=== PATIENT | female | born 1985 | race Two or more races ===

== ENCOUNTER 2024-11-25 20:16 | Inpatient (IN) | payer SELFPAY ==
[2024-11-25] VITALS (20 sets, daily range): BP systolic 121–186; BP diastolic 74–99; PULSE 64–95; RESP 16–100; TEMP 36.7; O2SAT 96–99; BMI 43.3
--- NOTE | 2024-11-25 20:42 | XR_ITS ---
Examination: Complete OB ultrasound greater than 14 weeks Date and time of exam: November 25, 2024 at 9:26 PM Indications: No care, unknown size and dates, pelvic pain 2 days with pelvic contractions Findings: Viable intrauterine single fetus with single amniotic sac presentation cephalic Cardiac motion 148 BPM Placenta fundal anterior grade 3 Poor visualization umbilical cord Amniotic fluid index 3.4 cm spine maternal left Cervix 3.9 cm Ovaries obscured by bowel gas. Composite estimated gestational age based on BPD, head circumference, abdominal circumference, femur length is 34 weeks 2 days Estimated weight 2494 g. Survey of intracranial anatomy, spinal anatomy, abdominal anatomy, four-chamber heart performed with no abnormalities identified. Impression: Viable intrauterine gestation cephalic presentation Amniotic fluid index 3.4 cm Estimated gestational age 34 weeks 2 days Estimated weight 2494 g.
[2024-11-25 21:19] LABS: Collection Type, Urine Voided
[2024-11-25 21:29] LABS: Amphetamine/Metham Scrn,Ur OB Negative (Negative); Benzoylecgonine Screen, Ur OB Negative (Negative); Opiate Screen,Urine OB Negative (Negative); THC Screen,Urine OB Negative (Negative)
[2024-11-25] MEDS: RINGERS LACTATED 1000 ML 1,000 ML 999 ML IV (21:30)
[2024-11-25 21:41] LABS: Basophils % (Auto) 0 % (0-2.5); Eosinophils # (Auto) 0.1 Thou/mm3 (0.0-0.5); Eosinophils % (Auto) 1 % (0-10); Hematocrit 34.9 % (36.0-46.0); Hemoglobin 11.4 g/dL (12.0-16.0); Immature Granulocytes % (Auto) 0 % (0-0); Immature Granulocytes Auto 0.04 Thou/mm3 (0.00-0.00); Lymphocytes # (Auto) 2.2 Thou/mm3 (1.0-4.8); Lymphocytes % (Auto) 20 % (10-50); Mean Corpuscular HGB Conc 32.7 g/dl (31.0-37.0); Mean Corpuscular Hemoglobin 23.3 pg (25.0-35.0); Mean Corpuscular Volume 71 fL (80-100); Monocytes # (Auto) 0.8 Thou/mm3 (0.0-0.8); Monocytes % (Auto) 7 % (0-12); Neutrophils # (Auto) 8.1 Thou/mm3 (1.8-7.7); Neutrophils % (Auto) 72 % (37-80); Nucleated Red Blood Cell % 0 /100 WBC (0); Platelet Count 215 Thou/mm3 (140-440); RDW Standard Deviation 44.7 fL (36.4-46.3); Red Blood Count 4.89 Miln/mm3 (4.00-5.20); White Blood Count 11.3 Thou/mm3 (3.6-11.0)
[2024-11-25 21:52] LABS: Alanine Aminotransferase 29 U/L (10-49); Albumin, Serum 3.6 gm/dL (3.5-5.0); Albumin/Globulin Ratio 1.2 (1.2-2.2); Anion Gap 12 (7-16); Aspartate Amino Transferase 26 U/L (0-34); BUN/Creatinine Ratio 13 Ratio (12-20); Bilirubin,Total 0.5 mg/dL (0.3-1.2); Blood Urea Nitrogen 12 mg/dL (9-23); Calcium 8.8 mg/dL (8.3-10.6); Calcium (Corrected) 9.1 mg/dL (8.5-10.1); Carbon Dioxide 21.5 mMol/L (20.0-31.0); Chloride 104 mMol/L (98-107); Creatinine (Component) 0.9 mg/dL (0.6-1.3); Glucose 86 mg/dL (74-106); LDH (Lactate Dehydrogenase) 240 U/L (120-246); Osmolality,Calculated 272 (275-295); Potassium 3.8 mMol/L (3.4-5.1); Sodium 137 mMol/L (136-145); Total Protein 6.6 gm/dL (5.7-8.2); Uric Acid 7.6 mg/dL (3.1-7.8); eGFR > 60 See Note
[2024-11-25 21:53] LABS: Bilirubin,Urine Negative (Negative); Blood,Urine 3+ (Negative); Clarity,Urine Turbid (Clear/Hazy); Color,Urine Yellow (Lt Yel-Yel); Glucose, Urine Negative (Negative); Ketones,Urine Trace (Negative); Leukocyte Esterase,Urine Positive (Negative); Nitrite,Urine Negative (Negative); PH,Urine 6.5 (5.0-7.0); Protein,Urine 3+ (Neg - Trace); RBC,Urine 11 /hpf (0-3); Specific Gravity,Urine 1.032 (1.001-1.035); Squamous Epithelial Cell,Urine 34 /hpf (0-5); Urobilinogen,Urine Negative mg/dL (0.0-1.0); WBC,Urine 54 /hpf (0-5)
[2024-11-25 22:02] LABS: Hepatitis B Surface Antigen Non Reactive (Non React); Rubella, IgG Antibody Reactive (Immune)
[2024-11-25 22:03] LABS: Alkaline Phosphatase 322 U/L (46-116)
[2024-11-25 22:06] LABS: Syphilis Nonreactive (Nonreactive)
[2024-11-25 22:14] LABS: Glucose Estimated Average 120 mg/dL (80-131); Hemoglobin A1C 5.8 % Hgb (4.8-6.0)
[2024-11-25 22:22] LABS: HIV (1&2) Antibody Rapid Non-Reactive
--- NOTE | 2024-11-25 22:22 | ESHP_ITS ---
Documentation for date of: 11/25/24 OB Labor/Induct. HPI History of Present Illness Chief complaint: Bleeding, cramping, unknown gestational age : 2 Para: 1 Term pregnancies: 1 Living children: 1 History of Abortions: Spontaneous and Elective: 0 History of Vaginal deliveries: 1 History of sections: No History of : No History of present illness: Patient is a 39-year-old -0-0-1 status post vaginal delivery 15 years ago presented to triage with cramping and abdominal pain. She stated she did not feel well today. She denies headache, changes in vision or right upper quadrant pain. She reports she has had a cough and cold with some diarrhea recently butno fevers. Patient is has an unknown last menstrual period. She stated she tried to get care at [facility] and they told her they did not have any providers available. By ultrasound in triage she is approximately 33 to 34 weeks . While she was being evaluated in triage and the heart tones were noted to be in the 140s to 150s with decreased variability and some late decelerations. This was occurring frequently. Patient denies any drug use or smoking this . She is consented for a primary for recurrently decelerations. Blood pressures 150s over 90s in triage with 3+ protein. Patient has probable preeclampsia. was called at 10:12 PM. History of Present Dating criteria: based on 3rd trimester US only Adequate Care: No Ultrasounds: none and other (The ultrasound she has had this has been done in OB triage immediately before delivery.) Medical complications: none Labs Labs: Unknown: RPR, Hepatitis B, Rubella Titre, HIV, Chlamydia, Gonorrhea and Group Beta Strep Narrative: All labs were drawn on her admission in triage tonight Review of Systems Constitutional Comments: Patient denies headaches or changes in vision. She states she has not felt well and had a cold recently. She denies right upper quadrant pain. She reports spotting and pain for 2 to 3 days before she appeared no loss of fluids no time oval contraction she has felt pressure. Past Medical History Surgical History SURGICAL: Negative Section OTHER SURGICAL HX: Patient denies any significant medical history or surgical history Social History SOCIAL: Patient denies smoking alcohol or drug use this Past Medical History Comments PMH COMMENT: Patient denies any surgeries any asthma hypertension or diabetes. Meds Home Medications and Allergies Home Medications ?Medication ?Instructions ?Recorded ?Confirmed ?Type vit no.95-ferrous 1 tab PO QDAY 11/25/2411/03 History fumarate 28 mg-folic acid 800 mcg tablet () Allergies Allergy/AdvReac Type Severity Reaction Status Date / Time No Known Allergies Allergy Verified 11/25/24 20:25 OB Exam Physical Exam Vital signs: Pulse BP 93 153/79 H 11/25/24 22:14 11/25/24 22:14 Routine Respiratory Exam Respiratory: Present CTA bilaterally Routine Cardiovascular Exam Cardiovascular: Present RRR Routine Abdominal Exam Abdominal: Present soft Detailed Labor and Delivery Exam Dilation (cm): ft Effacement (%): thick Cervix position: posterior station: -4 Consistency: firm Presentation: Vertex Membranes: intact monitor decelerations: Late intermediate manager variability: Minimal (3-5) Tachysystole: No Routine Extremities Exam Comments: No cyanosis clubbing or edema. Routine Skin Exam Skin: Present dry Routine Neurological Exam Neurological: Present alert and oriented X3 Routine Psychiatric Exam Psychiatric: Present normal affect, normal thought process and anxious Comments: Slightly anxious OB Results Labs 11/25/24 21:05 11/25/24 21:05 Labs: Short CBC 11/25/24 Range/Units 21:05 WBC 11.3 H (3.6-11.0) Thou/mm3 Hgb 11.4 L (12.0-16.0) g/dL Hct 34.9 L (36.0-46.0) % Plt Count 215 (140-440) Thou/mm3 BMP 11/25/24 21:05 Sodium 137 Potassium 3.8 Chloride 104 Carbon Dioxide 21.5 BUN 12 Creatinine 0.9 Glucose 86 Calcium 8.8 Liver Function 11/25/24 Range/Units 21:05 Total Bilirubin 0.5 (0.3-1.2) mg/dL AST 26 (0-34) U/L ALT 29 (10-49) U/L Alkaline Phosphatase 322 H (46-116) U/L Albumin 3.6 (3.5-5.0) gm/dL Urine 11/25/24 Range/Units 21:05 Urine Color Yellow (Lt Yel-Yel) Urine Clarity Turbid A (Clear/Hazy) Urine pH 6.5 (5.0-7.0) Ur Specific [place] 1.032 (1.001-1.035) Urine Protein 3+ A (Neg - Trace) Urine Glucose (UA) Negative (Negative) OB Assessment & Plan Assessment and Plan (1) : Status: Acute (2) Advanced maternal age (AMA) in : Status: Acute (3) Pre-eclampsia affecting childbirth: Status: Acute (4) No care in current in third trimester: Status: Acute Additional Plan Additional Plan Comment: For emergent section secondary to category 3 tracing not improved with medical interventions (1) Qualifiers: Weeks of gestation: 34 weeks Qualified Code(s): Z3A.34 - 34 weeks gestation of
[2024-11-25 22:23] LABS: INR 0.1 (0.9-1.3); Prothrombin Time 10.3 Seconds (9.0-12.2)
--- NOTE | 2024-11-25 22:38 | ESHP_ITS ---
Documentation for date of: 11/25/24 OB Labor/Induct. HPI History of Present Illness : 2 Para: 1 Term pregnancies: 1 Living children: 1 History of Abortions: Spontaneous and Elective: 0 History of Vaginal deliveries: 1 History of sections: No History of : No History of present illness: Patient is a 39-year-old -0-0-1 status post vaginal delivery 15 years ago presented to triage with cramping and abdominal pain. She stated she did not feel well today. She denies headache, changes in vision or right upper quadrant pain. She reports she has had a cough and cold with some diarrhea recently butno fevers. Patient is has an unknown last menstrual period. She stated she tried to get care at [facility] and they told her they did not have any providers available. By ultrasound in triage she is approximately 33 to 34 weeks . While she was being evaluated in triage and the heart tones were noted to be in the 140s to 150s with decreased variability and some late decelerations. This was occurring frequently. Patient denies any drug use or smoking this . She is consented for a primary for recurrently decelerations. Blood pressures 150s over 90s in triage with 3+ protein. Patient has probable preeclampsia. was called at 10:12 PM. History of Present Dating criteria: based on 3rd trimester US only Adequate Care: No Labs Labs: Unknown: RPR, Hepatitis B, Rubella Titre, HIV, Chlamydia, Gonorrhea and Group Beta Strep Past Medical History Surgical History SURGICAL: Negative Section Meds Home Medications and Allergies Home Medications ?Medication ?Instructions ?Recorded ?Confirmed ?Type vit no.95-ferrous 1 tab PO QDAY 11/25/2411/03 History fumarate 28 mg-folic acid 800 mcg tablet () Allergies Allergy/AdvReac Type Severity Reaction Status Date / Time No Known Allergies Allergy Verified 11/25/24 20:25 OB Exam Physical Exam Vital signs: Pulse BP Pulse Ox 88 157/79 H 99 11/25/24 22:34 11/25/24 22:34 11/25/24 22:35 OB Results Labs 11/25/24 21:05 11/25/24 21:05 Labs: Short CBC 11/25/24 Range/Units 21:05 WBC 11.3 H (3.6-11.0) Thou/mm3 Hgb 11.4 L (12.0-16.0) g/dL Hct 34.9 L (36.0-46.0) % Plt Count 215 (140-440) Thou/mm3 BMP 11/25/24 21:05 Sodium 137 Potassium 3.8 Chloride 104 Carbon Dioxide 21.5 BUN 12 Creatinine 0.9 Glucose 86 Calcium 8.8 Liver Function 11/25/24 Range/Units 21:05 Total Bilirubin 0.5 (0.3-1.2) mg/dL AST 26 (0-34) U/L ALT 29 (10-49) U/L Alkaline Phosphatase 322 H (46-116) U/L Albumin 3.6 (3.5-5.0) gm/dL Urine 11/25/24 Range/Units 21:05 Urine Color Yellow (Lt Yel-Yel) Urine Clarity Turbid A (Clear/Hazy) Urine pH 6.5 (5.0-7.0) Ur Specific [place] 1.032 (1.001-1.035) Urine Protein 3+ A (Neg - Trace) Urine Glucose (UA) Negative (Negative) OB Assessment & Plan Assessment and Plan (1) : Status: Acute (2) Advanced maternal age (AMA) in : Status: Acute (3) Pre-eclampsia affecting childbirth: Status: Acute (4) No care in current in third trimester: Status: Acute (1) Qualifiers: Weeks of gestation: 34 weeks Qualified Code(s): Z3A.34 - 34 weeks gestation of
[2024-11-25] MEDS: ceFAZolin/D5W 2 GM IV 2 GM/100 ML BAG IV (22:41)
[2024-11-25] MEDS: CITRIC ACID/SODIUM CITR 15 ML UDC (BICITRA) 30 ML PO (22:41)
[2024-11-25] MEDS: FAMOTIDINE INJ 10 MG/ML VIAL 2 ML 20 MG IVP (22:41)
[2024-11-25 23:06] LABS: Fibrinogen 494 mg/dL (175-375)
--- NOTE | 2024-11-25 23:53 | ESOP_ITS ---
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 She stated she was unable to obtain care. She presented to triage with vague abdominal pain and not feeling well. She also reported some vaginal bleeding and cramping with pressure. In triage, the patient's blood pressures were noted to be in the 150s over 80s to 90s. heart tones were noted to be 150s with decreased variability and subtle decelerations suspicious for late decelerations. These persisted despite position change and an IV fluid bolus. A Bedside ultrasound was called for to determine gestational age and the bedside ultrasound revealed a vertex presentation very low NICK of about 2-3 and a grade 3 placenta. Baby was measuring approximately 34 weeks. As patient's blood pressures were elevated with 3+ protein in her urine and a category 3 tracing that was not resolving with medical intervention the decision was made to proceed with emergent primary low-transverse section. Pre-Op diagnosis: 1. Intrauterine at an unknown gestational age, suspected 34 weeks 2. Advanced maternal age 3. No care 4. Category 3 tracing 5. Suspected preeclampsia 6. Maternal BMI of 43 Post-Op diagnosis: Same Anesthesia type: Spinal Procedure description: After obtaining informed consent, the patient was brought back to the operating room and spinal anesthesia was placed.She was then prepped and draped in the dorsal supine position with a leftward tilt in a normal sterile fashion. A Patel catheter had been inserted in the patient's bladder in triage. He patient was given 2 g of Ancef by anesthesia. A Pfannenstiel skin incision was made with a scalpel and carried down to the underlying fascia, the fascia was incised in the midline and the fascial incision extended laterally using Fajardo scissors. The superior aspect the fascia was grasped with Dayne clamps and the underlying rectus muscles dissected off using blunt and sharp dissection. This was repeated in the inferior aspect of the incision. The rectus muscles were the midline the peritoneum was picked up and entered sharply with Metzenbaums. This was extended superiorly and inferiorly with good visualization of the bladder. The bladder blade was inserted the uterus was incised in low transverse fashion using a scalpel above the bladder reflection. The uterine incision was extended laterally using blunt dissection with the surgeon's fingers. The bag bryant was ruptured and thick meconium noted. The bladder blade was removed the infant was delivered atraumatically. The cord was clamped and cut and the was handed off to the waiting pediatric staff. Cord blood and cord gases were sent. The placenta was then manually removed and handed off the operating field. It was noted to be calcified and meconium stained. The uterus was then exteriorized and cleared of all clots and debris. The uterine incision was repaired using 0 Monocryl in a running locked fashion. Excellent hemostasis was noted. The uterus was returned to the patient's abdominal cavity and copious irrigation carried out with warm normal saline.The uterine incision was reexamined and noted to be hemostatic. After ensuring the rectus muscles were hemostatic these were reapproximated the midline using a running suture of 0 Monocryl.The fascia was closed with 0 Vicryl in a running fashion.The subcutaneous tissues were irrigated and found to be hemostatic. These were reapproximated using 3-0 plain. The skin was closed with a subcuticular suture of 4-0 Monocryl. The patient tolerated the procedure well, sponge lap instrument needle counts correct x 2 patient went to the recovery area awake and in stable condition the baby was in the NICU doing well at the time of dictation. Fluids: crystalloid Fluid amount (mL): 800 Urine output (mL): 200 Specimen: other (Placenta to pathology) Implants: none Estimated blood loss (ml): 500 Findings: Liveborn male in the OA presentation with no nuchal cord and with thick meconium. Apgars are still pending at the time of dictation. Weight is 6 pounds 6 ounces. The placenta was complete spontaneous meconium stained and with large amount of calcifications. This was sent down to pathology for further review. 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 Appendix was normal with no adhesions or other abnormalities in the patient's pelvis. Of note blood gases were drawn on the baby pH arterial 7.06 base excess -10.6 pH venous 7.14 base excess -9.5 Complications: none Surgical staff Operation Date: 11/25/24 22:30 Case Staff FIELD REPRESENTATIVE: Rashida Mcconnell RN First Assistant: Rosa Berry Diagnosis Discharge Diagnosis (1) No care in current in third trimester: Status: Acute (2) Pre-eclampsia affecting childbirth: Status: Acute (3) Advanced maternal age (AMA) in : Status: Acute (4) : Status: Acute Problem List Completed Was Problem List Reviewed/Reconciled?: Yes (4) Qualifiers: Weeks of gestation: 34 weeks Qualified Code(s): Z3A.34 - 34 weeks gestation of
[2024-11-26] VITALS (24 sets, daily range): BP systolic 122–171; BP diastolic 78–109; PULSE 63–80; RESP 14–22; TEMP 36.3–36.6; O2SAT 93–98
--- NOTE | 2024-11-26 00:13 | OBDSUM_ITS ---
<Statement entered by Mague Adams MD - 11/29/24 19:43> please see op report for delivery summary
[2024-11-26] MEDS: LABETALOL INJ 5 MG/ML VIAL 20 ML 20 MG IVP (02:33)
[2024-11-26] MEDS: LABETALOL INJ 5 MG/ML VIAL 20 ML 40 MG IVP (02:54)
[2024-11-26] MEDS: LABETALOL INJ 5 MG/ML VIAL 20 ML 80 MG IVP (03:22)
[2024-11-26] MEDS: ONDANSETRON INJ 2 MG/ML INJ 2 ML 4 MG IV ×2 (03:27→11:45)
[2024-11-26] MEDS: hydrALAZINE INJ 20 MG/ML VIAL 5 MG IV (03:55)
[2024-11-26 05:31] LABS: Hematocrit 35.5 % (36.0-46.0); Hemoglobin 11.2 g/dL (12.0-16.0)
[2024-11-26] MEDS: OXYTOCIN in NS 20 units 20 UNIT/1,000 ML BAG 125 UNIT IV (05:39)
[2024-11-26 06:22] LABS: Anion Gap 12 (7-16); BUN/Creatinine Ratio 15 Ratio (12-20); Blood Urea Nitrogen 12 mg/dL (9-23); Carbon Dioxide 22.2 mMol/L (20.0-31.0); Chloride 102 mMol/L (98-107); Creatinine (Component) 0.8 mg/dL (0.6-1.3); Estimated Creatinine Clearance 102.4 mL/min (>60); Glucose 169 mg/dL (74-106); Osmolality,Calculated 275 (275-295); Potassium 4.2 mMol/L (3.4-5.1); Sodium 136 mMol/L (136-145); eGFR > 60 See Note
[2024-11-26] MEDS: PRENATAL VITAMIN/FE FUM/FA TABLET 1 TAB PO (08:50)
[2024-11-26] MEDS: DOCUSATE SOD 100 MG CAPSULE PO (08:50)
[2024-11-26] MEDS: NIFEdipine XL 30 MG TABCR PO (08:50)
[2024-11-26 10:02] LABS: Basophils % (Auto) 0 % (0-2.5); Eosinophils % (Auto) 0 % (0-10); Hematocrit 33.8 % (36.0-46.0); Hemoglobin 10.6 g/dL (12.0-16.0); Immature Granulocytes % (Auto) 1 % (0-0); Immature Granulocytes Auto 0.11 Thou/mm3 (0.00-0.00); Lymphocytes # (Auto) 1.1 Thou/mm3 (1.0-4.8); Lymphocytes % (Auto) 7 % (10-50); Mean Corpuscular HGB Conc 31.4 g/dl (31.0-37.0); Mean Corpuscular Hemoglobin 23.2 pg (25.0-35.0); Mean Corpuscular Volume 74 fL (80-100); Monocytes # (Auto) 0.3 Thou/mm3 (0.0-0.8); Monocytes % (Auto) 2 % (0-12); Neutrophils # (Auto) 13.3 Thou/mm3 (1.8-7.7); Neutrophils % (Auto) 90 % (37-80); Nucleated Red Blood Cell % 0 /100 WBC (0); Platelet Count 197 Thou/mm3 (140-440); RDW Standard Deviation 47.5 fL (36.4-46.3); Red Blood Count 4.56 Miln/mm3 (4.00-5.20); White Blood Count 14.9 Thou/mm3 (3.6-11.0)
[2024-11-26 10:19] LABS: Alanine Aminotransferase 24 U/L (10-49); Albumin, Serum 3.3 gm/dL (3.5-5.0); Albumin/Globulin Ratio 1.1 (1.2-2.2); Anion Gap 11 (7-16); Aspartate Amino Transferase 29 U/L (0-34); BUN/Creatinine Ratio 15 Ratio (12-20); Bilirubin,Total 0.3 mg/dL (0.3-1.2); Blood Urea Nitrogen 12 mg/dL (9-23); Calcium 8.7 mg/dL (8.3-10.6); Calcium (Corrected) 9.3 mg/dL (8.5-10.1); Carbon Dioxide 21.9 mMol/L (20.0-31.0); Chloride 104 mMol/L (98-107); Creatinine (Component) 0.8 mg/dL (0.6-1.3); Estimated Creatinine Clearance 102.4 mL/min (>60); Globulin 2.9 gm/dL (2.3-3.5); Glucose 154 mg/dL (74-106); Osmolality,Calculated 276 (275-295); Potassium 4.1 mMol/L (3.4-5.1); Sodium 137 mMol/L (136-145); Total Protein 6.2 gm/dL (5.7-8.2); eGFR > 60 See Note
[2024-11-26 10:38] LABS: Alkaline Phosphatase 286 U/L (46-116)
--- NOTE | 2024-11-26 12:11 | PD.LDPPPRG ---
Subjective Subjective Interval history: alert and active. now beginning to eat Exam Vital Signs Temp Pulse Resp BP Pulse Ox O2 Del Method 97.9 F 75 18 143/86 H 93 L Room Air 11/26/24 11:09 11/26/24 11:09 11/26/24 11:09 11/26/24 11:09 11/26/24 03:55 11/26/24 11:09 Objective Labs 11/26/24 09:16 11/26/24 09:16 Labs: Laboratory Results - last 24 hr 11/25/24 11/25/24 11/26/24 20:50 21:05 05:13 WBC 11.3 H RBC 4.89 Hgb 11.4 L 11.2 L Hct 34.9 L 35.5 L MCV 71 L MCH 23.3 L MCHC 32.7 RDW Std Deviation 44.7 Plt Count 215 Neut % (Auto) 72 Lymph % (Auto) 20 [place] % (Auto) 7 Eos % (Auto) 1 Baso % (Auto) 0 Neut # (Auto) 8.1 H Lymph # (Auto) 2.2 [place] # (Auto) 0.8 Eos # (Auto) 0.1 Baso # (Auto) 0.0 Immature Gran # (Auto) 0.04 H Absolute Nucleated RBC 0.00 Immature Gran % 0 Nucleated RBC % 0 PT 10.3 INR 0.1 L Fibrinogen 494 H Sodium 137 136 Potassium 3.8 4.2 Chloride 104 102 Carbon Dioxide 21.5 22.2 Anion Gap 12 12 BUN 12 12 Creatinine 0.9 0.8 Estim Creat Clear Calc Not Performed. 102.4 eGFR > 60 > 60 BUN/Creatinine Ratio 13 15 Glucose [address] Glu mg/dL 120 Hemoglobin A1c 5.8 Calculated Osmolality 272 L 275 Uric Acid 7.6 Calcium 8.8 9.0 Corrected Calcium 9.1 Total Bilirubin 0.5 AST 26 ALT 29 Alkaline Phosphatase 322 H Lactate Dehydrogenase 240 Total Protein 6.6 Albumin 3.6 Globulin 3.0 Albumin/Globulin Ratio 1.2 Ur Collection Type Voided Urine Color Yellow Urine Clarity Turbid A Urine pH 6.5 Ur Specific [place] 1.032 Urine Protein 3+ A Urine Glucose (UA) Negative Urine Ketones Trace Urine Blood 3+ A Urine Nitrite Negative Urine Bilirubin Negative Urine Urobilinogen (Auto) Negative Ur Leukocyte Esterase Positive Urine RBC 11 H Urine WBC 54 H Ur Squamous Epith Cells 34 H Urine Bacteria None Urine Opiates Screen Negative U Amphetamin/Meth Scrn Negative U Cocaine Metab Screen Negative U Marijuana (THC) Screen Negative Syphilis Serology Nonreactive Hep Bs Antigen Non Reactive HIV 1&2 Antibody Rapid Non-Reactive Rubella IgG Antibody Reactive (Immune) Blood Type A Positive Antibody Screen NEGATIVE Blood Bank Wristband ID Yes 11/26/24 09:16 WBC 14.9 H RBC 4.56 Hgb 10.6 L Hct 33.8 L MCV 74 L MCH 23.2 L MCHC 31.4 RDW Std Deviation 47.5 H Plt Count 197 Neut % (Auto) 90 H Lymph % (Auto) 7 L [place] % (Auto) 2 Eos % (Auto) 0 Baso % (Auto) 0 Neut # (Auto) 13.3 H Lymph # (Auto) 1.1 [place] # (Auto) 0.3 Eos # (Auto) 0.0 Baso # (Auto) 0.0 Immature Gran # (Auto) 0.11 H Absolute Nucleated RBC 0.00 Immature Gran % 1 H Nucleated RBC % 0 PT INR Fibrinogen Sodium 137 Potassium 4.1 Chloride 104 Carbon Dioxide 21.9 Anion Gap 11 BUN 12 Creatinine 0.8 Estim Creat Clear Calc 102.4 eGFR > 60 BUN/Creatinine Ratio [address] Glu mg/dL Hemoglobin A1c Calculated Osmolality 276 Uric Acid Calcium 8.7 Corrected Calcium 9.3 Total Bilirubin 0.3 AST 29 ALT 24 Alkaline Phosphatase 286 H D Lactate Dehydrogenase Total Protein 6.2 Albumin 3.3 L Globulin 2.9 Albumin/Globulin Ratio 1.1 L Ur Collection Type Urine Color Urine Clarity Urine pH Ur Specific [place] Urine Protein Urine Glucose (UA) Urine Ketones Urine Blood Urine Nitrite Urine Bilirubin Urine Urobilinogen (Auto) Ur Leukocyte Esterase Urine RBC Urine WBC Ur Squamous Epith Cells Urine Bacteria Urine Opiates Screen U Amphetamin/Meth Scrn U Cocaine Metab Screen U Marijuana (THC) Screen Syphilis Serology Hep Bs Antigen HIV 1&2 Antibody Rapid Rubella IgG Antibody Blood Type Antibody Screen Blood Bank Wristband ID Impressions Impression: 12 hours post c/s. BP undercontrol at thios tome. Still low urine output. Assessment & Plan Problem List (1) No care in current in third trimester: Status: Acute (2) Pre-eclampsia affecting childbirth: Status: Acute (3) Advanced maternal age (AMA) in : Status: Acute (4) : Status: Acute Time Spent With Patient Time: Total time spent is greater than 50% in coordination of care (as documented) at patient's floor/unit and/or counseling patient:
--- NOTE | 2024-11-26 12:12 | PC.SS ---
SS conducted bedside contact with the patient to address nursing referral indicating that patient had not received any care.? SS introduced self and role.? Patient confirmed she had very little care.? The barrier was she had no insurance and had difficulty setting up new appointments. She only received services for confirming and nutritional appointment. Patient states she has one other child at home who is her 15 year old son and now NB.? Patient received initial confirmation at [facility]. ??Patient has not picked out a ship harbor pilot yet. Patient delivered, baby boy, yesterday through section. NB is at [facility]. FOB, is recently .? Patient states she plans on breast feeding. Patient confirmed no history of CPS, drug/alcohol, DV or mental health history.? Patient is not aligned with WIC, SNAP or TANF. Patient has access to appropriate supplies and equipment.? Patient has access to a car seat.? SS provided a list of community resources: Warm line, [employer] and information on community numbers. Patient describes possessing support system consisting of family. Patient?s mother to provide transportation home. No further intervention required at this time. Military Technology Specialist will be available to address any further concerns. SS updated bedside nurse.
[2024-11-26] MEDS: RINGERS LACTATED 1000 ML 1,000 ML 100 ML IV (13:13)
[2024-11-26] MEDS: KETOROLAC INJ 30 MG/ML VIAL IVP (17:04)
[2024-11-27] MEDS: KETOROLAC INJ 30 MG/ML VIAL IVP (00:21)
[2024-11-27 05:30] VITALS: BP 144/91; PULSE 70; RESP 17; TEMP 36.7; O2SAT 99
[2024-11-27 07:10] VITALS: BP 129/81; PULSE 77; RESP 16; TEMP 36.6; O2SAT 95
[2024-11-27 08:08] VITALS: BP 129/81; PULSE 77
[2024-11-27] MEDS: NIFEdipine XL 30 MG TABCR PO (08:08)
[2024-11-27] MEDS: PRENATAL VITAMIN/FE FUM/FA TABLET 1 TAB PO (08:08)
[2024-11-27] MEDS: DOCUSATE SOD 100 MG CAPSULE PO (08:08)
--- NOTE | 2024-11-27 08:23 | ESPR_ITS ---
Subjective Subjective Interval history: Alert in NAD. Pain controlled with toradol. Asking re contacting [facility] [place] to video visit Exam Vital Signs Temp Pulse Resp BP Pulse Ox O2 Del Method 98.1 F 77 17 129/81 99 Room Air 11/27/24 05:30 11/27/24 08:08 11/27/24 05:30 11/27/24 08:08 11/27/24 05:30 11/27/24 05:30 Narrative Exam BP stabilizing with Niphedipine XL 30mg/day Constitutional Comments: alert Routine HEENT Exam Head: Present normocephalic Eye: Present EOMI and PERRL Routine Respiratory Exam Comments: lungs clear Routine Cardiovascular Exam Cardiovascular: Present RRR Routine Abdominal Exam Comments: u/2 firm lochia scant. Incision dry and intact Routine Extremities Exam Comments: +2 symetrical biceps/quadraceps Detailed Extremities Exam: Vascular Comments: present +1 pedal edema Objective Labs 11/26/24 09:16 11/26/24 09:16 Labs: Laboratory Results - last 24 hr 11/26/24 09:16 WBC 14.9 H RBC 4.56 Hgb 10.6 L Hct 33.8 L MCV 74 L MCH 23.2 L MCHC 31.4 RDW Std Deviation 47.5 H Plt Count 197 Neut % (Auto) 90 H Lymph % (Auto) 7 L [place] % (Auto) 2 Eos % (Auto) 0 Baso % (Auto) 0 Neut # (Auto) 13.3 H Lymph # (Auto) 1.1 [place] # (Auto) 0.3 Eos # (Auto) 0.0 Baso # (Auto) 0.0 Immature Gran # (Auto) 0.11 H Absolute Nucleated RBC 0.00 Immature Gran % 1 H Nucleated RBC % 0 Sodium 137 Potassium 4.1 Chloride 104 Carbon Dioxide 21.9 Anion Gap 11 BUN 12 Creatinine 0.8 Estim Creat Clear Calc 102.4 eGFR > 60 BUN/Creatinine Ratio 15 Glucose 154 H Calculated Osmolality 276 Calcium 8.7 Corrected Calcium 9.3 Total Bilirubin 0.3 AST 29 ALT 24 Alkaline Phosphatase 286 H D Total Protein 6.2 Albumin 3.3 L Globulin 2.9 Albumin/Globulin Ratio 1.1 L Assessment & Plan Problem List (1) No care in current in third trimester: Status: Acute (2) Pre-eclampsia affecting childbirth: Status: Acute (3) Advanced maternal age (AMA) in : Status: Acute (4) : Status: Acute Plan Comment Plan Comment: expect d/c in am Time Spent With Patient Time: Total time spent is greater than 50% in coordination of care (as documented) at patient's floor/unit and/or counseling patient:
[2024-11-27 12:06] VITALS: BP 137/88; PULSE 82; RESP 18; TEMP 36.9; O2SAT 97
[2024-11-27] MEDS: IBUPROFEN TAB 600 MG TABLET PO ×2 (12:09→23:27)
[2024-11-27 16:40] VITALS: BP 137/90; PULSE 95; RESP 18; TEMP 36.9; O2SAT 97
[2024-11-27] MEDS: ACETAMINOPHEN 325 MG TABLET 650 MG PO (16:48)
[2024-11-27 20:00] VITALS: BP 137/88; PULSE 87; RESP 16; TEMP 36.7; O2SAT 97
[2024-11-28 04:06] VITALS: BP 130/86; PULSE 89; RESP 14; TEMP 36.9; O2SAT 96
[2024-11-28 05:22] LABS: Hematocrit 32.2 % (36.0-46.0); Hemoglobin 10.2 g/dL (12.0-16.0)
[2024-11-28] MEDS: IBUPROFEN TAB 600 MG TABLET PO (06:14)
[2024-11-28 08:00] VITALS: BP 132/81; PULSE 79; RESP 18; TEMP 36.8; O2SAT 96
[2024-11-28 08:11] VITALS: BP 132/81; PULSE 79
[2024-11-28] MEDS: NIFEdipine XL 30 MG TABCR PO (08:11)
[2024-11-28] MEDS: DOCUSATE SOD 100 MG CAPSULE PO (08:11)
[2024-11-28] MEDS: PRENATAL VITAMIN/FE FUM/FA TABLET 1 TAB PO (08:11)
--- NOTE | 2024-11-28 09:47 | PD.LDPPPRG ---
Subjective Subjective Interval history: alert and active, Notes had cough on admission, and now may still be present Exam Vital Signs Temp Pulse Resp BP Pulse Ox O2 Del Method 98.2 F 79 18 132/81 H 96 Room Air 11/28/24 08:00 11/28/24 08:11 11/28/24 08:00 11/28/24 08:11 11/28/24 08:00 11/28/24 08:00 Narrative Exam doing well no evidence of HTN while on Niphedipine 30 XL Routine HEENT Exam Comments: PERELAC<EOM INTACT Routine Respiratory Exam Comments: LUNGS CLEAR Detailed Cardiovascular Exam Comments: RRR Routine Abdominal Exam Comments: U/@ firm; active BS Objective Labs 11/28/24 04:50 11/26/24 09:16 Labs: Laboratory Results - last 24 hr 11/28/24 04:50 Hgb 10.2 L Hct 32.2 L Assessment & Plan Problem List (1) No care in current in third trimester: Status: Resolved (2) Pre-eclampsia affecting childbirth: Status: Resolved (3) Advanced maternal age (AMA) in : Status: Resolved (4) : Status: Resolved Plan Comment Plan Comment: D/C with Nipheduipine XL 30 QD #14 Time Spent With Patient Time: Total time spent is greater than 50% in coordination of care (as documented) at patient's floor/unit and/or counseling patient:
== END 2024-11-28 12:20 | disposition home or self-care (01) | DRG 788 ==
LOC: S4SX 22:58 → S4NX 11-26 00:13
PROVIDERS: Obstetrics & Gynecology; Admitting Provider Obstetrics & Gynecology; PCP Family Medicine; Visit Provider Obstetrics & Gynecology
PROC: 10D00Z1 Extraction of Products of Conception, Low, Open Approach (ICD-10-PCS; CPT 59514; principal; 2024-11-25 22:15)
DX: O14.94 Unspecified pre-eclampsia, complicating childbirth (principal); O77.0 Labor and delivery complicated by meconium in amniotic fluid; O76 Abnormality in fetal heart rate and rhythm complicating labor and delivery; Z37.0 Single live birth; Z3A.34 34 weeks gestation of pregnancy
CPT/HCPCS: 36415; 59025; 59409; 76805; 80048; 80053; 80307; 81001; 83036; 83615; 84550; 85014; 85018; 85025; 85384; 85610; 86703; 86762; 86780; 86850; 86900; 86901; 87340; 94762; J0360; J0689; J1100; J1885; J2274; J2371; J2405; J2590; J3010; J3490; J7120; A9270; J1920; J2270

== ENCOUNTER 2024-11-30 03:48 | Emergency (ER) | payer MEDICAID, SELFPAY ==
[2024-11-30 03:50] VITALS: BMI 43.0
[2024-11-30 03:59] VITALS: BP 142/99; PULSE 87; RESP 18; TEMP 36.8; O2SAT 96
--- NOTE | 2024-11-30 05:03 | PD.EDSKIN ---
ED Skin Abcess FB-RME/HPI General Chief complaint: Fever Stated complaint: RASH ON ABDOMEN, FEVER, CSECTION 11/25 Time Seen by Provider: 11/30/24 04:17 Arrival date/time: 11/30/24 03:48 39F with no significant PMH presents to ED with days of fevers/chills and cough, as well as itchy rash near area several days ago. Limitations: no limitations Related Data Home Medications ?Medication ?Instructions ?Recorded ?Confirmed vit no.95-ferrous 1 tab PO QDAY 11/25/24 11/25/24 fumarate 28 mg-folic acid 800 mcg tablet () Previous Rx's ?Medication ?Instructions ?Recorded nifedipine 30 mg tablet,extended 30 mg PO QDAY #14 tabs 11/28/24 release 24 hr vits no.130-ferrous fum 1 tab PO QDAY 90 days #90 tabs 11/28/24 27 mg iron-folic acid 800 mcg tablet ( Vitamin) diphenhydramine HCl 2 % topical 1 applic topical BID PRN skin 11/30/24 gel (Benadryl) irritation #103 mL oseltamivir 75 mg capsule (Tamiflu) 75 mg PO BID 5 days #10 caps 11/30/24 Allergies Allergy/AdvReac Type Severity Reaction Status Date / Time No Known Allergies Allergy Verified 11/25/24 20:25 Review of Systems Review of Systems Systems Reviewed: All systems reviewed, normal except as documented Constitutional Constitutional: Reports system reviewed and no additional complaints, except as documented, Denies fever(s) and Denies headache(s) ENT Ears, Nose, Mouth, and Throat: Denies disequilibrium and Denies headache(s) Cardiovascular Cardiovascular: Reports system reviewed and no additional complaints, except as documented, Denies chest pain and Denies dyspnea Respiratory Respiratory: Reports system reviewed and no additional complaints, except as documented, Denies cough and Denies dyspnea Gastrointestinal Gastrointestinal: Reports system reviewed and no additional complaints, except as documented, Denies abdominal pain, Denies nausea and Denies vomiting Integumentary/Breasts Skin/Breast: Reports as per HPI, Reports pruritus and Reports rash Neurologic Neurologic: Reports system reviewed and no additional complaints, except as documented, Denies confusion, Denies disequilibrium and Denies headache(s) Psychiatric Psychiatric: Denies confusion Past Medical History Past Medical History NEUROLOGIC: Negative Neurological Disorders or Seizures CARDIAC: Negative Cardiac Disorders or Congestive Heart Failure RESPIRATORY: Negative Chronic Obstructive Pulmonary Disease (COPD) GASTROINTESTINAL: Negative Gastrointestinal Disorders or Hepatitis GENITOURINARY: Negative Genitourinary Disorders or Renal Disease REPRODUCTIVE: Negative Pelvic Inflammatory Disease MUSCULOSKELETAL: Negative Musculoskeletal Disorders ENDOCRINE: Negative Endocrine Disorders, Diabetes Mellitus Type 1 or Diabetes Mellitus Type 2 HEMATOLOGIC: Negative Blood Disorders OTHER HISTORY: Positive Hospitalization (vaginal delivery of first child); Negative Autoimmune Disease, Down Syndrome, Developmental Delay, Shingles, Falls, Blood Transfusions, Blood Transfusion Reaction, Anesthesia Reactions, Organ Transplant, Chemotherapy, Radiation Therapy, Hyperbaric Therapy, MRSA, VRSA, Vancomycin-Resistant Enterococci, Human Immunodeficiency Virus (HIV), Chicken Pox, Measles, Mumps, Rubella ([place] Measles), Pertussis, Clostridium Difficile or Cancer Family History FAMILY HISTORY: Negative Family Psychiatric Problems, Family Respiratory Disorders, Family Cardiac Disorders, Family Gastrointestinal Problems, Family Cancer, Family Surgery or Family Anesthesia Reaction Surgical History SURGICAL: Negative Cardiac Surgery, Endocrine Surgery, Ear Surgery, Abdominal Surgery, Nephrectomy, Joint Replacement, Neurologic Surgery, Mastectomy, Lumpectomy, Hysterectomy, Tubal Ligation, Section or Organ Transplant Social History SMOKING STATUS: Never smoker ED Exam General Limitations: Present no limitations General appearance: Present alert and in no apparent distress Head Head exam: Present atraumatic Eye Eye exam: Present normal appearance, PERRL and EOMI ENT ENT exam: Present normal exam, normal oropharynx and mucous membranes moist Neck Neck exam: Present normal inspection, full ROM and trachea midline Chest Chest inspection: Present normal inspection and symmetric chest wall rise Respiratory Respiratory exam: Present normal lung sounds bilaterally Cardiovascular Cardiovascular exam: Present regular rate, normal rhythm and normal heart sounds Abdominal Exam Abdominal exam: Present soft and normal bowel sounds Extremities Exam Extremities exam: Present normal inspection and full ROM Back Exam Back exam: Present normal inspection and full ROM Neurological Exam Neurological exam: Present alert, oriented X3 and CN II-XII intact Psychiatric Psychiatric exam: Present normal affect and normal mood Skin Skin exam: Present warm, dry, intact, normal color and rash Course Quality Measures none Orders Category Date Time Status Bedside Influenza A&B Antigen Test NOW Care 11/30/24 04:16 Completed Vital Signs Vital signs: Vital Signs Temperature 98.2 F 11/30/24 03:59 Pulse Rate 87 11/30/24 03:59 Respiratory Rate 18 11/30/24 03:59 Blood Pressure 142/99 H 11/30/24 03:59 Pulse Oximetry (%) 96 11/30/24 03:59 Oxygen Delivery Method Room Air 11/30/24 03:59 O2 at 96% on RA and WNLs Skin / Abscess / Foreign Body MDM Narrative MDM Narrative:: 39F with no significant PMH presents to ED with days of fevers/chills and cough, as well as itchy rash near area several days ago. Physical exam reveals red, non-tender rash to the L of scar. Clear ENT and lungs. Patient is afebrile, calm, and alert. Flu A/B+, which likely responsible for fever. Rash is more likely contact/allergic dermatitis vs fungal rash, though no satellite lesions. Will give Tamiflu given proximity to and PP period. Patient data External records reviewed:: [facility] previous records Clinical information provided by:: patient Social determinants that could affect healthcare access:: none Patient has the following chronic illnesses:: none How is presenting disease/condition affected by chronic disease/condition?: no chronic disease Evaluation data The following diagnostics were reviewed and interpreted by me:: lab results Lab and/or radiology exams considered but not ordered:: ordered Interpretation Summary: above Medications / Prescriptions Medications or Prescriptions considered but not ordered:: not ordered Medication administrations:: n/a Consultations Consultation(s) initiated? (list below): No Diagnosis Skin/Abscess Differential Diagnosis: abscess of skin or subcutaneous tissue, viral exanthem, dermatophytosis, urticaria, herpes zoster, allergic reaction to drug, cellulitis, eczema, insect bites, impetigo, contact dermatitis and other (flu, cellulitis, rash) Most likely diagnosis given after review of the tests above:: rash, Flu A/B Admission Indicated Admission indicated?: not indicated Admission Request Was there a request for admission?: No Disposition Plan Disposition Plan: Discharge Discharge Attestation Discharge Attestation: The patient and all family members were given an opportunity to ask questions and understood the discharge instructions. Discharge instructions specifically effects, indications for sooner follow up or return to the emergency department, and the expected course of current diagnosis. Patient condition: Stable Discharge Plan Plan Patient Disposition: HOME (Self Care) Disposition Comment: Stable Prescriptions/Referrals Prescriptions/Med Rec: New oseltamivir [Tamiflu] 75 mg capsule 75 mg PO BID 5 Days Qty: 10 0RF Benadryl 2 % gel 1 applic topical BID PRN (Reason: skin irritation) Qty: 103 0RF No Action PNV cmb#95-ferrous fumarate-FA [] 28 mg iron- 800 mcg tablet 1 tab PO QDAY nifedipine 30 mg Tablet Extended Release 24hr 30 mg PO QDAY Qty: 14 0RF Rx Instructions: 1 PO QD Vitamin 27 mg iron- 800 mcg Tablet 1 tab PO QDAY 90 Days Qty: 90 0RF Problem List Clinical Impression: Influenza A, Rash, Influenza B Patient/Caregiver Discharge Instructions Education Materials: ED Influenza (Adult) Additional Instructions: Please follow-up with PCP/OBGYN within 24-48 hours and return immediately if symptoms worsen. Print Language: Setswana Stand Alone Forms: Patient Portal Info Letter PA/CONSULTING IT ARCHITECT Supervising Physician KAIN/RAMOS Supervising Physician: Dr. Villarreal
== END 2024-11-30 04:25 | disposition home or self-care (01) ==
LOC: SERX 06:59
PROVIDERS: Emergency Provider Emergency Medicine; PCP Family Medicine
DX: J10.1 Influenza due to other identified influenza virus with other respiratory manifestations (principal); R21 Rash and other nonspecific skin eruption
CPT/HCPCS: 87400; 99283

== ENCOUNTER 2024-12-06 15:29 | Outpatient (AMB) | payer MEDICAID, SELFPAY ==
--- NOTE | 2024-12-06 15:33 | GYNCLNT_ITS ---
Vital Signs 12/06/24 15:40 Height 1.52 m Height Method Stated Weight 92.079 kg Weight Measurement Method Standing Scale BMI 39.6 BP 120/82 Blood Pressure Source Automatic Cuff Blood Pressure Location Left Upper Arm Position Sitting Respiration 16 Pulse 78 Pulse Source Monitor Temp 97.9 F Temp Source Oral Pulse Oximetry (%) 96 Oxygen Delivery Method Room Air Allergies/Home Meds Allergies & Medications Allergies No Known Allergies Allergy (Verified 12/06/24 15:41) Medication Reconciliation vit no.95-ferrous fumarate 28 mg-folic acid 800 mcg tablet () 1 tab PO QDAY 11/25/24 [History Confirmed 12/06/24] nifedipine 30 mg tablet,extended release 24 hr 30 mg PO QDAY #14 tabs 11/28/24 [Rx Confirmed 12/06/24] vits no.130-ferrous fum 27 mg iron-folic acid 800 mcg tablet ( Vitamin) 1 tab PO QDAY 90 days #90 tabs 11/28/24 [Rx Confirmed 12/06/24] diphenhydramine HCl 2 % topical gel (Benadryl) 1 applic topical BID PRN skin irritation #103 mL 11/30/24 [Rx Confirmed 12/06/24] Intake Visit Data Collection New Patient or Established: Established Patient (seen at 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 1. Little interest or pleasure in doing things: not at all 2. Feeling down, depressed, or hopeless: not at all Total score: 0 PHQ-9 3. Trouble falling or staying asleep, or sleeping too much: Not at all 4. Feeling tired or having little energy: Not at all 5. Poor appetite or overeating: Not at all 6. Feeling bad about yourself - or that you are a failure or have let yourself or your family down: Not at all 7. Trouble concentrating on things, such as reading the newspaper or watching television: Not at all 8. Moving or speaking so slowly that other people could have noticed? - Or the opposite - being so fidgety or restless that you have been moving around a lot more than usual: not at all 9. Thoughts that you would be better off or of hurting yourself in some way: Not at all Total score: 0 Source: Developed by Drs. Eliot Reyes, Anjali Lyman, Dereck Daley and colleagues, with an educational jennifer from [employer]. Depression screen completed yes Social History Living Situation History Marital Status: Lives With: Family Housing: Apartment Tobacco History Smoking Status: Never smoker Second Hand Smoke Exposure: No Alcohol History Alcohol Intake: Never Substance Use History Substance Use: NONE Domestic Abuse History Do You Feel Safe at Home: Yes Past Medical History Past Medical History Have you ever been diagnosed with any of the following: Neurological Problems Seizures: No Cardiology Problems Cardiac Arrhythmia: No Heart Murmur: No Hypercholesterolemia: No Deep Vein Thrombosis: No Hypertension: No Respiratory Problems Asthma: No Pulmonary Embolism: No Sleep Apnea: No Stomache/Intestinal Problems Gall Bladder Disease: No Irritable Bowel: No Gastroesophageal Reflux Disease: No Obesity: Yes Genital/Urinary Problems Renal Disease: No Kidney Stones: No Reproductive Problems Breast Cancer: No Endometriosis: No Fibroids: No Genital Herpes: No Gonorrhea: No Pelvic Inflammatory Disease: No Previous Pregnancies: Yes ( 15 years ago, CS 11 days ago) Syphilis: No Musculoskeletal Problems Arthritis: No Rheumatoid Arthritis: No Scoliosis: No Fibromyalgia: No Head,Eye,Nose,Throat Problems Glaucoma: No Blind: No Endocrine Problems Diabetes Mellitus Type 2: No Systemic Lupus Erythematosus: No Blood Problems Anemia: No Clotting Problems: No Psychologic Problems Bipolar Disorder: No Depression: No Anxiety: No Attention Deficit Disorder: No Other Problems Hospitalization: Yes (vaginal delivery of first child, recent CS) Autoimmune Disease: No Blood Transfusions: No Hyperbaric Therapy: No Surgical History Appendectomy: No Bariatric Surgery: No Breast Surgery: No Cholecystectomy: No History of Present Illness HPI Narrative Patient is a 39-year-old -0-0-2 status post emergent primary for preeclampsia with an unknown gestational age about 11 days ago. She was unable to obtain care so had limited care. The Baby weighed 6 pounds at . Baby is still in the NICU in [place]. Patient is doing well after surgery. Her first baby was born vaginally 15 years ago. I did her 11 days ago. Patient is still on Procardia XL and her blood pressure is now well-controlled. Plan will be to see her back in about 10 days to see if she can go off her blood pressure medications Review of Systems Review of Systems Narrative Review of Systems: Patient's pain is controlled with ibuprofen and Tylenol. No headaches no scotomata no heavy vaginal bleeding no fevers chills no erythema around her incision. No shortness of breath. Systems Reviewed: All systems reviewed, normal except as documented Exam General Limitations: no limitations General Appearance: alert, in no apparent distress, comfortable, cooperative, healthy appearing and well groomed Chest Chest inspection: Present normal inspection and symmetric chest wall rise Resp Respiratory exam: Present normal lung sounds bilaterally Card Cardiovascular exam: Present regular rate, normal rhythm and normal heart sounds Abdominal Abdominal exam: Present soft, normal bowel sounds and other (Fundus is firm nontender. Incision is clean dry and intact no erythema there is some induration approximately 3 x 4 cm in her right lower quadrant of her incision this is nontender.) Extremities Extremities exam: Present normal inspection and full ROM Psych Psychiatric exam: Present normal affect and normal mood Skin Skin exam: Present warm, dry, intact and normal color Assessment & Plan Diagnosis / Problem List (1) induced hypertension, : Status: Acute Plan: Continue Procardia XL 30 daily recheck blood pressure in 10 days (2) care following delivery: Status: Acute Plan: Continue care. Return in 1 week to check wound. Call with fevers chills or erythema around incision. Additional Plan Follow Up: 10 Days Office Procedures OB Clinic LOC & Office Proc's Nursing/Assessment Patient Status: Established Patient OB Clinic Nursing Assessment: Medication Reconciliation, Update PMH in EMR and Vital Signs OB Clinic Coordination of Care: Complex Care and Chronic Disease 1-5, Consent,records obtained, informed consent, Education Simp Pt/Fam, Results/Orders obtained and Staff clarify orders Established Patient Charge Established Patient Point Assignment: 90 Established Patient Point Charge: EP Level 3 (80-115)
[2024-12-06 15:40] VITALS: BP 120/82; PULSE 78; RESP 16; TEMP 36.6; O2SAT 96; BMI 39.6
== END 2024-12-06 16:18 | disposition home or self-care (01) ==
PROVIDERS: PCP Family Medicine; Referring Provider Family Medicine; Supervising Provider Obstetrics & Gynecology; Visit Provider Obstetrics & Gynecology
DX: Z39.2 Encounter for routine postpartum follow-up (principal); O13.5 Gestational [pregnancy-induced] hypertension without significant proteinuria, complicating the puerperium
CPT/HCPCS: 99213; G0463

== ENCOUNTER 2024-12-17 13:14 | Outpatient (AMB) | payer MEDICAID, SELFPAY ==
--- NOTE | 2024-12-17 13:15 | AMB.GYNCLNOT ---
Vital Signs 12/17/24 13:31 Height 1.52 m Height Method Stated Weight 93.497 kg Weight Measurement Method Standing Scale BMI 40.4 BP 116/79 Blood Pressure Source Automatic Cuff Blood Pressure Location Left Upper Arm Position Sitting Respiration 16 Pulse 81 Pulse Source Monitor Temp 97.0 F Temp Source Oral Pulse Oximetry (%) 97 Oxygen Delivery Method Room Air Allergies/Home Meds Allergies & Medications Allergies No Known Allergies Allergy (Verified 12/17/24 13:32) Medication Reconciliation vit no.95-ferrous fumarate 28 mg-folic acid 800 mcg tablet () 1 tab PO QDAY 11/25/24 [History Confirmed 12/17/24] nifedipine 30 mg tablet,extended release 24 hr 30 mg PO QDAY #14 tabs 11/28/24 [Rx Confirmed 12/17/24] vits no.130-ferrous fum 27 mg iron-folic acid 800 mcg tablet ( Vitamin) 1 tab PO QDAY 90 days #90 tabs 11/28/24 [Rx Confirmed 12/17/24] diphenhydramine HCl 2 % topical gel (Benadryl) 1 applic topical BID PRN skin irritation #103 mL 11/30/24 [Rx Confirmed 12/17/24] Intake Visit Data Collection New Patient or Established: Established Patient (seen at [facility] within 3 years) Reason for Visit:: Patient presents for a wound check status post 11/25/2024 Seen by Clinical Staff ONLY (RN/MA): No Billing Associate Required: No Do You Feel Safe at Home: Yes Authorities Contacted: N/A PCP or OBGYN visit in last 3 months: Yes Hx Now: No Are you currently on any form of Control: No Pain Present Currently: Yes Pain Scale Used: Murguia-Elkins/Numerical Pain scale:: 0 Smoking Status Smoking Status: Never smoker 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 1. Little interest or pleasure in doing things: not at all 2. Feeling down, depressed, or hopeless: not at all Total score: 0 PHQ-9 8. Moving or speaking so slowly that other people could have noticed? - Or the opposite - being so fidgety or restless that you have been moving around a lot more than usual: not at all Source: Developed by Drs. Eliot Reyes, Anjali Lyman, Dereck Daley and colleagues, with an educational jennifer from [employer]. Depression screen completed yes Social History Living Situation History Marital Status: Lives With: Family Housing: House Tobacco History Smoking Status: Never smoker Second Hand Smoke Exposure: No Alcohol History Alcohol Intake: Never Substance Use History Substance Use: NONE Domestic Abuse History Do You Feel Safe at Home: Yes Past Medical History Past Medical History Have you ever been diagnosed with any of the following: Neurological Problems Cerebrovascular Accident (CVA): No Transient Ischemic Attacks (TIA): No Dementia: No Alzheimer's Disease: No Parkinson's Disease: No Brain Tumor: No Meningitis: No Seizures: No Cardiology Problems Myocardial Infarction: No Cardiac Arrhythmia: No Atrial Fibrillation: No Angina: No Heart Murmur: No Coronary Artery Disease: No Atherosclerotic Heart Disease: No Hypercholesterolemia: No Congestive Heart Failure: No Deep Vein Thrombosis: No Hypertension: No Respiratory Problems Chronic Obstructive Pulmonary Disease (COPD): No Asthma: No Pulmonary Embolism: No Sleep Apnea: No Stomache/Intestinal Problems Hepatitis: No Gall Bladder Disease: No Irritable Bowel: No Gastroesophageal Reflux Disease: No Obesity: Yes Genital/Urinary Problems Renal Disease: No Kidney Stones: No Reproductive Problems Breast Cancer: No Endometriosis: No Fibroids: No Genital Herpes: No Gonorrhea: No Pelvic Inflammatory Disease: No Previous Pregnancies: Yes ( 15 years ago, CS 11 days ago) Syphilis: No Musculoskeletal Problems Muscular Dystrophy: No Myasthenia Gravis: No Arthritis: No Rheumatoid Arthritis: No Scoliosis: No Fibromyalgia: No Head,Eye,Nose,Throat Problems Cataracts: No Glaucoma: No Blind: No Retinal Detachment: No Macular Degeneration: No Chronic Ear Infections: No Deafness: No Eye Prosthesis: No Endocrine Problems Diabetes Mellitus Type 1: No Diabetes Mellitus Type 2: No Systemic Lupus Erythematosus: No Blood Problems Anemia: No Leukemia: No Hemophilia: No Thalassemia: No Sickle Cell Disease: No Clotting Problems: No Psychologic Problems Schizophrenia: No Recreational Drug Use: No Bipolar Disorder: No Depression: No Anxiety: No Attention Deficit Disorder: No Other Problems Hospitalization: Yes (vaginal delivery of first child, recent CS) Down Syndrome: No Developmental Delay: No Shingles: No Falls: No Blood Transfusions: No Blood Transfusion Reaction: No Anesthesia Reactions: No Organ Transplant: No Chemotherapy: No Radiation Therapy: No Hyperbaric Therapy: No MRSA: No VRSA: No Vancomycin-Resistant Enterococci: No Human Immunodeficiency Virus (HIV): No Chicken Pox: No Measles: No Mumps: No Rubella ([place] Measles): No Pertussis: No Clostridium Difficile: No Cancer: No Surgical History Appendectomy: No Bariatric Surgery: No Breast Surgery: No Cholecystectomy: No Hysterectomy: No History of Present Illness HPI Narrative Patient is a 39-year-old -0-0-2 status post primary 11/25/2024 for a category 3 tracing. Patient had very limited care that she could not find a provider. Her baby did get transferred to [facility] and is home now. His name is Jaylan. He is doing quite well. Patient is pumping her breastmilk and states she is having trouble latching the baby she is interested in seeing for this. Patient denies heavy vaginal bleeding fevers chills or cramps. Her son at home is 15 years old. 2hr glucose: No Return of menses: No Resuming intercourse: [place] of baby: Jaylan Gender: male Date of delivery: 11/25/24 Route of delivery: section Delivering provider: Dr. Sandra Adams Order: [email or web address] Delivery outcome: liveborn Other delivery details: Baby transferred to [facility] secondary to possible meconium aspiration Interim details: no feeding problems and breast and bottle feeding Interim complaints: none [place] concerns: none and feeding problems [place] score: 0 Additional details: Patient having difficulty latching baby and wants to breast-feed. She breast-fed her 15-year-old. She was referred to . Review of Systems Review of Systems Narrative Review of Systems: No fevers chills heavy vaginal bleeding erythema around her incision no signs of depression. Exam General Limitations: no limitations General Appearance: alert, in no apparent distress, comfortable, cooperative, healthy appearing and well groomed Abdominal Abdominal exam: Present soft and scar (Incision clean dry and intact fundus intermediate up to her umbilicus and nontender) Assessment & Plan Diagnosis / Problem List (1) care following delivery: Status: Acute Plan: Patient is strict no heavy lifting intercourse tampons or douching for 4 more weeks. She will follow-up then. She was told she could walk for exercise. She is referred to (2) induced hypertension, : Status: Acute Plan: Blood pressure must much improved today. Discontinue all blood pressure medications. Additional Plan Follow Up: 4 Weeks Office Procedures OB Clinic LOC & Office Proc's Nursing/Assessment Patient Status: Established Patient OB Clinic Nursing Assessment: BP Monitoring, Medication Reconciliation, Update PMH in EMR and Vital Signs OB Clinic Coordination of Care: Complex Care and Chronic Disease 1-5, Consent,records obtained, informed consent, Education Simp Pt/Fam and Staff clarify orders Established Patient Charge Established Patient Point Assignment: 100 Established Patient Point Charge: EP Level 3 (80-115)
[2024-12-17 13:31] VITALS: BP 116/79; PULSE 81; RESP 16; TEMP 36.1; O2SAT 97; BMI 40.4
== END 2024-12-17 13:57 | disposition home or self-care (01) ==
LOC: HODSOBC 13:14
PROVIDERS: PCP Family Medicine; Referring Provider Family Medicine; Supervising Provider Obstetrics & Gynecology; Visit Provider Obstetrics & Gynecology
DX: Z39.2 Encounter for routine postpartum follow-up (principal)
CPT/HCPCS: 99213; G0463

== ENCOUNTER 2025-01-22 13:13 | Outpatient (AMB) | payer MEDICAID, SELFPAY ==
[2025-01-22 13:26] VITALS: BP 109/60; PULSE 68; RESP 18; TEMP 36.9; O2SAT 98; BMI 40.4
--- NOTE | 2025-01-22 13:26 | AMB.GYNCLNOT ---
Vital Signs 01/22/25 13:26 Height 1.52 m Height Method Stated Weight 93.44 kg Weight Measurement Method Standing Scale BMI 40.4 BP 109/60 Blood Pressure Source Automatic Cuff Blood Pressure Location Right Upper Arm Position Sitting Respiration 18 Pulse 68 Pulse Source Monitor Temp 98.4 F Temp Source Temporal Artery Scan Pulse Oximetry (%) 98 Oxygen Delivery Method Room Air Allergies/Home Meds Allergies & Medications Allergies No Known Allergies Allergy (Verified 01/22/25 13:27) Intake Visit Data Collection New Patient or Established: Established Patient (seen at [facility] within 3 years) Reason for Visit:: visit and annual gynecological 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 1. Little interest or pleasure in doing things: not at all 2. Feeling down, depressed, or hopeless: not at all Total score: 0 PHQ-9 8. Moving or speaking so slowly that other people could have noticed? - Or the opposite - being so fidgety or restless that you have been moving around a lot more than usual: not at all Source: Developed by Drs. Eliot Reyes, Anjali Lyman, Dereck Daley and colleagues, with an educational jennifer from [employer]. Depression screen completed yes Social History Living Situation History Marital Status: Single Lives With: Family Housing: House Housing Other:: Patient has a 15-year-old son and a son she works at a [employer] Tobacco History Smoking Status: Never smoker Second Hand Smoke Exposure: No Alcohol History Alcohol Intake: Never Substance Use History Substance Use: NONE Domestic Abuse History Do You Feel Safe at Home: Yes Past Medical History Past Medical History Have you ever been diagnosed with any of the following: Cardiology Problems Hypercholesterolemia: No Deep Vein Thrombosis: No Hypertension: Yes (-induced hypertension at delivery) Respiratory Problems Asthma: No Sleep Apnea: No Stomache/Intestinal Problems Gall Bladder Disease: No Irritable Bowel: No Gastroesophageal Reflux Disease: No Obesity: Yes (Current BMI 40) Genital/Urinary Problems Kidney Stones: No Reproductive Problems Breast Cancer: No Endometriosis: No Fibroids: No Genital Herpes: No Gonorrhea: No Pelvic Inflammatory Disease: No Previous Pregnancies: Yes ( 15 years ago, CS 11/25/24) Syphilis: No Musculoskeletal Problems Arthritis: No Rheumatoid Arthritis: No Fibromyalgia: No Endocrine Problems Diabetes Mellitus Type 2: No Hyperthyroidism: No Hypothyroidism: No Systemic Lupus Erythematosus: No Blood Problems Anemia: No Other Problems Hospitalization: Yes (vaginal delivery of first child, recent CS) Surgical History Appendectomy: No Bariatric Surgery: No Breast Surgery: No Cholecystectomy: No History of Present Illness HPI Narrative The patient is a 39-year-old -1-0-2 status post vaginal delivery 15 years ago of a son. She most recently presented to the hospital with elevated blood pressures and an unknown due date and underwent a primary approximately 35 weeks on 11/25/24 due to Category II tracing and HTN. This was performed at [facility] by myself. Her son is named Jaylan. He did go to [facility] and stayed in the nursery for 2 weeks. Patient presents for a check, she has no gynecological complaints. Her blood pressure has stabilized and she is not on HTN medications. She was told she may need a repeat next delivery. She does not desire contraception now and states if she is sexually active, she will use condoms. I did review options including IUD, a Nexplanon , and the minipill and patient declines. She is working on breast-feeding but she is having to supplement quite a bit. She is unsure whether she is going to go back to work. She used to work at a [employer] and she is not sure if she can secure childcare for her youngest son. Of note upon discussing the patient's family history, she tells me her mother had breast cancer twice, a maternal aunt had breast cancer at 50 and another maternal aunt of breast cancer. The patient has never been checked for the BRCA1 BRCA2 gene. No other cancers in the family. As she is still breast-feeding we will not order a mammogram yet. Patient was told to call after she weans and we can order a mammogram for her. This will be her first screening mammogram. She is unsure when her last Pap smear was. She did not get one during her . She had very little care as she could not find a physician this . Review of Systems Review of Systems Narrative Review of Systems: No pain. No heavy bleeding. No abnormal vaginal discharge. No odor. No depression or anxiety. She is breast and bottlefeeding. Exam General General Appearance: alert, in no apparent distress, comfortable, cooperative, healthy appearing, well developed and well groomed Neck Neck exam: Present normal inspection, full ROM and trachea midline Chest Chest inspection: Present normal inspection and symmetric chest wall rise Exp Chest Breast: bilateral: other (Breast exam bilaterally normal) Resp Respiratory exam: Present normal lung sounds bilaterally Card Cardiovascular exam: Present regular rate, normal rhythm and normal heart sounds Abdominal Abdominal exam: Present soft and scar (Well-healed Pfannenstiel incision) External exam: Present normal external exam Speculum exam: Present normal speculum exam Bimanual exam: Present normal bimanual exam Extremities Extremities exam: Present normal inspection and full ROM Psych Psychiatric exam: Present normal affect and normal mood Skin Skin exam: Present warm, dry, intact and normal color Assessment & Plan Diagnosis / Problem List (1) care following delivery: Status: Acute Assessment and Plan: Patient can go back to normal activities including intercourse swimming tampons douching and exercise. Patient usually should use condoms for contraception. She was told not to become for at least a year after section in order to allow her uterine incision to heal. (2) Women's annual routine gynecological examination: Status: Acute Assessment and Plan: Pap with high risk HPV is performed breast exam done encouraged. Will order screening mammogram once patient weans. (3) Family history of breast cancer in first degree relative: Status: Acute Assessment and Plan: Authorize for BRCA 1 BRCA2 testing. Office Procedures OB Clinic LOC & Office Proc's Nursing/Assessment Patient Status: Established Patient OB Clinic Nursing Assessment: Medication Reconciliation, Update PMH in EMR and Vital Signs OB Clinic Coordination of Care: Complex Care and Chronic Disease 1-5, Education Complex Pt/Fam and Staff clarify orders Established Patient Charge Established Patient Point Assignment: 85 Established Patient Point Charge: EP Level 3 (80-115)
== END 2025-01-22 13:58 | disposition home or self-care (01) ==
LOC: HODSOBC 13:13
PROVIDERS: PCP Family Medicine; Referring Provider Family Medicine; Supervising Provider Obstetrics & Gynecology; Visit Provider Obstetrics & Gynecology
DX: Z01.419 Encounter for gynecological examination (general) (routine) without abnormal findings (principal); Z80.3 Family history of malignant neoplasm of breast
CPT/HCPCS: 99213; G0463